=== PATIENT | male | born 1975 | race Caucasian/White ===

== ENCOUNTER → 2024-05-03 11:42 | Outpatient (CLI) | payer OTHER, MEDICAID, SELFPAY ==
--- NOTE | 2024-05-03 11:43 | DI.US.S_ITS ---
PROCEDURE: US ABDOMEN LIMITED INDICATIONS: Hep C TECHNIQUE: Real-time scanning was performed of the abdominal and retroperitoneal organs, with image documentation. COMPARISON: None. FINDINGS: Liver: Liver is normal in size and homogeneous in echotexture. No discrete hepatic lesion. Normal flow is seen in patent main portal vein, hepatic veins and splenic vein. Gallbladder: Tiny echogenic focus is seen in non dependent portion of gallbladder wall. No gallbladder wall thickening or pericholecystic fluid. No sonographic Long sign. Biliary ducts: Intrahepatic bile ducts are non-dilated. Extrahepatic bile duct caliber measures 2.7 mm. Normal is 6-7 mm or less in diameter, or 10 mm or less post-cholecystectomy. Pancreas: Visualized portions of the pancreas are sonographically normal. Miscellaneous: No free abdominal fluid. IMPRESSION: 1. Echogenic focus in non dependent portion of gallbladder wall which may represent adherent stone versus gallbladder wall calcification. No sonographic evidence of acute cholecystitis. 2. No biliary ductal dilatation. 3. Normal liver size and parenchymal echotexture. Dictated by: Randolph Castro M.D. on 05/03/2024 at 16:14 Approved by: Randolph Castro M.D. on 05/03/2024 at 16:16
--- NOTE | 2024-05-03 11:43 | DI.ECHO.S_ITS ---
[place] +---------+ Hospital : : [address] : : [place] : : [id number] : : Phone: [phone] Echocardiogram Report + + :Name: AROLDO RUSSELL Study Date: 05/03/2024 Height: 67 in : :[facility] ReadingLocation: Weight: 185 lb : : Gender: Male BSA: 2.0 m2 : :: 1975 Age: 48 yrs BP: 178/114 mmHg: :Reason For Study: HYPERTENSION, SYSTOLIC MURMUR : :Ordering Physician: ROSALIA, : :EVAN Ordoñez Performed By: Traci Altamirano : :Referring: EVAN LINDSEY : + + Interpretation Summary 1. LV contractility mildly compromised with EF of 40-45%. Mild global hypokinesis. Mild cLVH. Unable to comment on diastolic function. 2. Normal RV contractility. 3. Normal chamber sizes. 4. No significant valvular abnormalities. 5. No obvious intracardiac shunts. 6. No obvious intracardiac masses/thrombi. 7. No hemodynamically significant pericardial effusion. 8. Low right sided filling pressures. Conclusion: Mildly compromised LV systolic function without significant valvular abnormalities. Procedure: A two-dimensional transthoracic echocardiogram with color flow and Doppler was performed. The study quality was technically adequate. There is no prior echocardiogram noted for this patient. The patient was in sinus tachycardia with heart rates between 82-101 bpm during the exam. Left Ventricle: The left ventricle is normal in size. There is mild concentric left ventricular hypertrophy. The ejection fraction is estimated to be 40-45%. Diastolic function could not be accurately assessed due to tachycardia. Right Ventricle: The right ventricle is normal in size and function. Atria: The left atrial size is normal. Right atrial size is normal. There is no Doppler evidence for an interatrial shunt. Mitral Valve: The mitral valve leaflets appear mildly thickened, but open well. There is trace mitral regurgitation. Aortic Valve: The aortic valve is trileaflet. The aortic valve opens well. There is no aortic valve stenosis. There is trace aortic regurgitation. Tricuspid Valve: The tricuspid valve is normal in structure and function. No tricuspid regurgitation. Pulmonic Valve: The pulmonic valve leaflets are thin and pliable; valve motion is normal. There is no pulmonic valvular regurgitation. Great Vessels: The aortic root is normal size. The dimensions of the ascending aorta are normal. The IVC is of normal diameter and collapses greater than 50% with a sniff. This suggests a low right atrial pressure of 3 mm Hg. Pericardium/ Pleura There is no pericardial effusion. There is no pleural effusion. MMode/2D Measurements & Calculations LVIDd: 5.6 cm LVOT diam: 2.0 cm LVIDs: 3.8 cm Ao root diam: 2.7 cm FS: 30.7 % asc Aorta Diam: 3.1 cm EPSS: 1.2 cm Ao Arch Diam (Prox Trans): 3.0 cm IVSd: 1.0 cm LVPWd: 1.1 cm LV colin. diameter/BSA (cm/m^2): 2.8 LV sys. diameter/BSA (cm/m^2): 2.0 LA A2 area: 20.4 cm2 RA long axis: 5.5 cm LA A4 area: 20.9 cm2 RA area: 16.8 cm2 LA length (vol): 5.7 cm RA vol: 43.1 ml LA vol: 63.7 ml RA : 22.0 ml/m2 LA vol index: 32.6 ml/m2 IVC diam: 1.6 cm RVD1 (basal): 3.5 cm RVD2 (mid): 2.5 cm TAPSE: 2.4 cm Doppler Measurements & Calculations Ao V2 max: 155.7 cm/sec LVOT Max Duran: 89.0 cm/sec Ao V2 mean: 107.6 cm/sec LV V1 max P.2 mmHg Ao max P.7 mmHg LV V1 VTI: 17.9 cm Ao mean P.1 mmHg PORFIRIO(I,D): 2.0 cm2 Ao V2 VTI: 29.2 cm PORFIRIO(V,D): 1.9 cm2 sev ratio: 0.61 PORFIRIO indexed to BSA (cm^2/m^2): 1.0 MV E max duran: 107.9 cm/sec PA V2 max: 95.2 cm/sec Med Peak E' Duran: 8.9 cm/sec PA V2 mean: 74.6 cm/sec E/E' med: 12.1 PA mean P.3 mmHg Lat Peak E' Duran: 9.7 cm/sec PA pr(Accel): 25.9 mmHg E/E' lat: 11.2 E/e' average: 11.6 SV(LVOT): 58.6 ml Reading Physician:
== END ==
PROVIDERS: Family Provider Family Medicine; PCP Family Medicine; Referring Provider Family Medicine; Visit Provider Family Medicine
DX: R01.1 Cardiac murmur, unspecified (principal); I10 Essential (primary) hypertension; B19.20 Unspecified viral hepatitis C without hepatic coma
CPT/HCPCS: 76705; 93306

== ENCOUNTER → 2024-05-15 09:34 | Outpatient (CLI) | payer OTHER, MEDICAID, SELFPAY ==
--- NOTE | 2024-05-15 09:36 | DI.RAD.S_ITS ---
PROCEDURE: XR CHEST 2V INDICATIONS: Dyspnea TECHNIQUE: 2 views of the chest were acquired. COMPARISON: None. FINDINGS: Surgical changes and devices: None. Lungs and pleura: Lungs are clear. No pleural effusions or pneumothorax. Mediastinum: Mediastinal contours are normal. Heart size is normal. Bones and chest wall: No suspicious bony abnormalities. Soft tissues appear unremarkable. IMPRESSION: No acute cardiopulmonary abnormality is seen. Dictated by: Ernie Hartman M.D. on 05/15/2024 at 11:23 Approved by: Ernie Hartman M.D. on 05/15/2024 at 11:24
== END ==
PROVIDERS: Family Provider Family Medicine; PCP Family Medicine; Referring Provider Student in an Organized Health Care Education/Training Program; Visit Provider Student in an Organized Health Care Education/Training Program
DX: R06.00 Dyspnea, unspecified (principal)
CPT/HCPCS: 71046

== ENCOUNTER → 2024-05-16 12:19 | Outpatient (CLI) | payer OTHER, MEDICAID, SELFPAY ==
[2024-05-16 12:49] LABS: Add Manual Diff / Slide Review NO; Basophils Absolute Auto 0 /uL (0-100); Basophils Percent Auto 0.7 % (0-2); Eosinophils Absolute Auto 200 /uL (0-450); Hematocrit 42.9 % (41-53); Hemoglobin 14.4 g/dL (13.5-17.5); Lymphocytes Absolute Auto 1200 /uL (1100-4500); Lymphocytes Percent Auto 24.1 % (25-40); Mean Corpuscular HGB Conc 33.5 % (30-36); Mean Corpuscular Hemoglobin 28.4 PG (26-34); Mean Corpuscular Volume 84.8 fL (80-100); Monocytes Absolute Auto 400 /uL (0-900); Monocytes Percent Auto 8.4 % (3-14); Neutrophils Absolute Auto 3200 /uL (1500-7000); Neutrophils Percent Auto 62.8 % (50-75); Platelet Count 279 X10^3/uL (150-400); Red Blood Cell Count 5.07 X10^6/uL (4.5-5.9); Red Cell Distribution Width 12.8 % (11.6-14.8); White Blood Cell Count 5.1 X10^3/uL (4.5-11.0)
[2024-05-16 12:57] LABS: Hemoglobin A1C% w Est Avg Glu 5.6 % (4.0-6.0)
[2024-05-16 13:06] LABS: Alanine Aminotransferase 75 IU/L (<50); Albumin 4.5 g/dL (3.5-5.0); Albumin Globulin Ratio 1.5 (1.0-2.8); Alkaline Phosphatase 60 U/L (38-126); Aspartate Aminotransferase 53 IU/L (17-59); Bilirubin Total 0.7 mg/dL (0.2-1.3); Blood Urea Nitrogen 23 mg/dL (9-20); Calcium 9.6 mg/dL (8.4-10.2); Carbon Dioxide 29 mmol/L (22-32); Chloride 101 mmol/L (98-107); Cholesterol 166 mg/dL (140-199); Estimated Glomerular Filt Rate > 60 mL/min (>60); Globulin 3.1 g/dL (1.7-4.1); Glucose 113 mg/dL (70-100); HDL Cholesterol 58 mg/dL (40-60); HEMOLYSIS < 15 (0-50); Sodium 137 mmol/L (137-145); Total Protein 7.6 g/dL (6.3-8.2)
[2024-05-16 13:20] LABS: LDL Cholesterol Calculated 97 mg/dL (<100); Triglycerides 57 mg/dL (35-150)
[2024-05-16 14:37] LABS: Urine N gonorrhoeae NOT DETECTED
[2024-05-16 14:38] LABS: Urine Chlamydia NOT DETECTED
[2024-05-17 00:33] LABS: HIV 1 & 2 Ab/Ag 4th Gen Combo NEGATIVE (NEGATIVE); Hep C Virus Ab w/Reflex Quant REACTIVE s/c (NEGATIVE)
== END ==
PROVIDERS: Family Provider Family Medicine; PCP Family Medicine; Referring Provider Family Medicine; Visit Provider Family Medicine
DX: Z11.3 Encounter for screening for infections with a predominantly sexual mode of transmission (principal); Z13.1 Encounter for screening for diabetes mellitus; Z11.4 Encounter for screening for human immunodeficiency virus [HIV]; I10 Essential (primary) hypertension; B19.20 Unspecified viral hepatitis C without hepatic coma
CPT/HCPCS: 36415; 80053; 80061; 83036; 85025; 86803; 87389; 87491; 87522; 87591

== ENCOUNTER → 2024-05-31 15:36 | Outpatient (CLI) | payer OTHER, MEDICAID, SELFPAY ==
--- NOTE | 2024-05-31 15:37 | DI.NM.S_ITS ---
PROCEDURE: NM EXERCISE TREADMILL NON NUC COMPARISON: None. INDICATIONS: HTN, reduced EF FINDINGS: Rest ECG sinus rhythm 94 bpm. Tato protocol 10:32, maximum heart rate 167 bpm (98% peak predicted), peak blood pressure 180/100, 11.2 METS, ANGEL 0%. Exercise ECG sinus tachycardia, no ST segment changes, rare PVCs. The patient did not report exercise-induced chest discomfort. IMPRESSION: Low risk study. No evidence of exercise-induced ischemia or arrhythmia. Normal hemodynamic response with questionable diastolic blood pressure measurement with exercise. Fair exercise capacity. Dictated by: Dorothy Oden D.O. on 06/01/2024 at 16:35 Approved by: Dorothy Oden D.O. on 06/01/2024 at 16:38
== END ==
PROVIDERS: Family Provider Family Medicine; PCP Family Medicine; Referring Provider Family Medicine; Visit Provider Family Medicine
DX: I10 Essential (primary) hypertension (principal); R94.30 Abnormal result of cardiovascular function study, unspecified
CPT/HCPCS: 93017

== ENCOUNTER → 2024-06-07 08:51 | Outpatient (CLI) | payer OTHER, SELFPAY | LOC: RESP 08:51 | PROVIDERS: Family Provider Family Medicine; PCP Family Medicine; Referring Provider Student in an Organized Health Care Education/Training Program; Visit Provider Student in an Organized Health Care Education/Training Program | DX: R06.00 Dyspnea, unspecified (principal); Z87.891 Personal history of nicotine dependence; R06.02 Shortness of breath; J81.1 Chronic pulmonary edema | CPT/HCPCS: 94060; 94726; 94729 ==

== ENCOUNTER → 2024-07-05 11:24 | Outpatient (CLI) | payer OTHER, SELFPAY ==
[2024-07-05 12:36] LABS: BUN Creatinine Ratio 25.9 (6-22); Blood Urea Nitrogen 35 mg/dL (9-20); Calcium 9.3 mg/dL (8.4-10.2); Carbon Dioxide 30 mmol/L (22-32); Chloride 99 mmol/L (98-107); Estimated Glomerular Filt Rate > 60 mL/min (>60); Glucose 105 mg/dL (70-100); HEMOLYSIS 36 (0-50); Potassium 4.6 mmol/L (3.4-5.1); Sodium 136 mmol/L (137-145)
[2024-07-05 17:14] LABS: Hep C Virus Ab w/Reflex Quant REACTIVE s/c (NEGATIVE)
== END ==
LOC: LAB 11:26
PROVIDERS: Family Provider Family Medicine; PCP Family Medicine; Referring Provider Family Medicine; Visit Provider Internal Medicine Cardiovascular Disease
DX: I50.22 Chronic systolic (congestive) heart failure (principal); B18.1 Chronic viral hepatitis B without delta-agent
CPT/HCPCS: 36415; 80048; 86803